=== PATIENT | female | born 1970 | race Caucasian/White ===

== ENCOUNTER 2023-06-26 14:38 | Outpatient (OUT) | payer BC, SELFPAY ==
--- NOTE | 2023-06-26 14:46 | US_ITS ---
The [address] [address] Patient Name: DUSTIN PHAM MRN: [id number] date: 1970 Sex: F Assigned Patient Location: US Current Patient Location: US Accession/Order Number: [id number] Exam Date: 06/26/2023 14:49 Report Date: 06/26/2023 15:41 At the request of: NATHANAEL JASMINE Procedure: US soft tissue head and neck US soft tissue head and neck, 06/26/2023 2:49 PM EST INDICATION: cervical lymphadenopthy R59.0 COMPARISON: There is no appropriate prior study for comparison. There are multiple heterogeneous lesions along the right aspect of neck with central vascular hilum. The largest one measures 1.3 x 1 x 1.1 cm the others measure 0.7 x 0.9 x 0.7 and 4 x 0.6 x 0.8 cm. There is adjacent soft tissue swelling. No fluid collection is noted. US/US soft tissue head and neck IMPRESSION: Multiple enlarged lymphadenopathy in the right aspect of the neck with adjacent soft tissue swelling. A CT of the neck with contrast is recommended for further evaluation. Electronically authenticated by: GABE IVORY Date: 06/26/2023 15:41
== END 2023-06-26 14:39 | disposition home or self-care (01) ==
LOC: US 14:42
PROVIDERS: PCP Family Medicine; Visit Provider Family Medicine
DX: R59.0 Localized enlarged lymph nodes (principal)
CPT/HCPCS: 76536

== ENCOUNTER 2023-08-20 12:13 | Day surgery (SDC) | payer BC, SELFPAY ==
--- NOTE | 2023-08-20 12:18 | US_ITS ---
[address] [address] Patient Name: DUSTIN PHAM MRN: [id number] date: 1970 Sex: F Assigned Patient Location: US Current Patient Location: US Accession/Order Number: [id number] Exam Date: 08/20/2023 12:20 Report Date: 08/20/2023 13:55 At the request of: DREA GUZMAN Procedure: US biopsy lymph node EXAMINATION: US biopsy lymph node on the core biopsy HISTORY: right neck mass COMPARISON: Ultrasound 06/26/2023. CT 07/03/23 TECHNIQUE: After obtaining informed consent, ultrasound-guided fine needle aspiration was performed in the usual sterile manner. FINDINGS: IMAGING: Ultrasound. BIOPSY NEEDLE: 19-gauge 6 cm Temno guide . 20-gauge 11 cm spring loaded core biopsy needle LOCATION: Right subclavicular heterogeneous mass/lymph node SPECIMEN TYPE: 3 core biopsies LOCAL ANESTHETIC: 4 cc 1% buffered lidocaine COMPLICATIONS: None. LABORATORY: Cytology and flow cytometry OTHER: Negative. PATHOLOGY: Pending. An addendum will be added when results are available. US/US biopsy lymph node IMPRESSION: 1. Uneventful ultrasound guided core biopsy of a right subclavicular mass/lymph node 2. Pathology results are pending. Electronically authenticated by: GENEVA JONES Date: 08/20/2023 13:55
--- OUTSIDE RECORDS SUMMARY | 2023-08-20 12:18 | XMS_ITS | CCD ---
Author Organization [facility] Care Team Providers Care Organ Installer Name Role Phone DR SARANYA ZULUAGA Admitting Unavailable KENROY, DR SARANYA Dickey Primary Care Unavailable KENROY, DR SARANYA Dickey Attending Unavailable SHAWN, DR JAVAD Bustillo Consulting Unavailable KENROY, DR SARANYA Dickey Consulting Unavailable MD Saranya Zuluaga Primary Care Provider MD Saranya Zuluaga Attending Provider [phone] Saranya Zuluaga Attending Unavailable Saranya Zuluaga Primary Care Unavailable Saranya Zuluaga Admitting Unavailable DREA GUZMAN Attending Unavailable Problems Problem Classification Problem Date Documented Da te Episodic/Chronic Lymphadenitis (5 sources) Cervical lymphadenopathy; Translations: [Localized enlarged lymph nodes] Onset: 07-03-2023 06-26-2023 Episodic Other screening for suspected conditions (not mental disorders or infectious disease) (4 sources) Encounter for screening mammogram for malignant neoplasm of breast; Translations: [ENC SCR MAMMO MALIG NEOPLASM BREAST] Onset: 09-06-2020 Episodic Results Test Name Value Interpretation Reference Range Facility Alanine aminotransferase [En zymatic activity/volume] in Serum or PlasmaOrdered By: Saranya Zuluaga on 07-03-2023 ALT [Catalytic activity/Vol] 10 U/L 7-52 [facility] Albumin [Mass/volume] in Ser um or Plasma by Bromocresol green (BCG) dye binding methoOrdered By: Saranya Zuluaga on 07-03-2023 Albumin BCG dye [Mass/Vol] 4.2 g/dL 3.5-5.7 [facility] Alkaline phosphatase [Enzyma tic activity/volume] in Serum or PlasmaOrdered By: Saranya Zuluaga on 07-03-2023 ALP [Catalytic activity/Vol] 80 U/L 34-104 [facility] Aspartate aminotransferase [ Enzymatic activity/volume] in Serum or PlasmaOrdered By: Saranya Zuluaga on 07-03-2023 AST [Catalytic activity/Vol] 14 U/L 13-39 [facility] Basophils Auto (Bld) [#/Vol] Ordered By: Saranya Zuluaga on 07-03-2023 Basophils (Bld) [#/Vol] 0.1 10*3/uL 0.0-0.2 [facility] Basophils/100 WBC Auto (Bld) Ordered By: Saranya Zuluaga on 07-03-2023 Basophils/100 WBC (Bld) 1.1 % . [facility] Bilirubin.total [Mass/volume ] in Serum or PlasmaOrdered By: Saranya Zuluaga on 07-03-2023 Bilirubin [Mass/Vol] 0.4 mg/dL 0.3-1.[address] [facility] CT soft tissue neck w conon 07-03-2023 CT soft tissue neck w con [facility] [address] CT Scan Report Signed Patient: Celine Pham MR#: [id number] 780 : 1970 Acct:[id number] Age/Sex: 53 / F ADM Date: 07/03/23 Loc: UL Room: Type[facility] Attending Dr: Saranya Zuluaga MD Copies to: Saranya Zuluaga MD Ordering Provider: Saranya Zuluaga MD Date of Service: 07/03/23 CT/CT soft tissue neck w con: R59.0 - Localized enlarged lymph nodes CT SOFT TISSUE NECK WITH CONTRAST CLINICAL DATA: Cervical lymphadenopathy. COMPARISON: Ultrasound 07/03/2023 Spiral images were obtained through the neck following 90 mL Isovue-300. This CT exam was performed using one or more following dose reduction techniques: Automated exposure control, adjustment of the mA and/or kV according to patient size, or use of iterative reconstruction technique. No thyroid nodularity is identified. The submandibular and parotid glands appear symmetric. There is no enlargement of the adenoids or tonsils. The epiglottis and vocal cords are within normal limits. The airway is patent throughout its course with normal appearance of the mucosal surfaces. No prevertebral soft tissue swelling is seen. There are a few small shotty upper cervical and left supraclavicular lymph nodes. In the supraclavicular region on the right, there is a heterogeneous nodular area measuring 2.2 cm in size with surrounding stranding within the subcutaneous fat. Inferior to it there are 2 additional hypoechoic nodules in close proximity measuring 8 and 9 mm in size. There is also minimal subcutaneous inflammatory change at this site. There is an additional small hypoechoic nodule along the lateral margin of the sternocleidomastoid muscle on that side. These may represent abnormal lymph nodes. There are mild degenerative change at the cervical spine, predominantly at C6-7. The imaged mastoid air cells and paranasal sinuses are clear. No dental disease is noted. Limited imaging through the upper lungs shows no contributory findings. CT/CT soft tissue neck w con IMPRESSION: NODULARITY IN THE SUPRACLAVICULAR REGION ON THE RIGHT WITH SURROUNDING INFLAMMATORY CHANGE. ADENOPATHY IS SUSPECTED HOWEVER IT IS UNCERTAIN IF THIS IS REACTIVE RELATED TO AN INFECTIOUS/INFLAMMATOR Y PROCESS OR RELATED TO A NEOPLASTIC PROCESS WITH THE LIMITED HISTORY AND NO PRIOR IMAGING OTHER THAN THE NECK. CLINICAL CORRELATION WILL BE NEEDED. THE AREA WOULD BE AMENABLE TO PERCUTANEOUS BIOPSY IF CLINICALLY WARRANTED. Impression dictated by: Isabel Cruz M.D.07/04/2023 1:23 PM Dictation Location: [place] [address] Transcribed By: CHAIM 07/04/23 1323 Dictated By: Isabel Cruz MD 07/03/232003 Signed By: 07/04/23 1323 Normal [facility] Calcium [Mass/volume] in Ser um or PlasmaOrdered By: Saranya uZluaga on 07-03-2023 Calcium [Mass/Vol] 9.0 mg/dL 8.6-10.3 [facility] Carbon dioxide, total [Moles /volume] in Serum or PlasmaOrdered By: Saranya Zuluaga on 07-03-2023 CO2 [Moles/Vol] 28.4 mmol/L 21.0-31.0 [facility] Chloride [Moles/volume] in S dwight or PlasmaOrdered By: Saranya Zuluaga on 07-03-2023 Chloride [Moles/Vol] 103 mmol/L 98-107 [facility] Complete Blood Count Auto Di ffon 07-03-2023 Basophils (Bld) [#/Vol] 0.1 10*3/uL Normal 0.0-0.2 [facility] Comment on above: Result Comment: PERF ORMED BY: [place] [address] PATHOLOGIST ASSEMBLER MECHANICAL ORDNANCE MAYDA BUSBY M.D. Performed By: #### C BC, CMP, TSH3 wRFLX #### [address] Basophils/100 WBC (Bld) 1.1 % Normal . [facility] Comment on above: Performed By: #### C BC, CMP, TSH3 wRFLX #### [address] Eosinophils (Bld) [#/Vol] 0.1 10*3/uL Normal 0.0-0.45 [facility] Comment on above: Performed By: #### C BC, CMP, TSH3 wRFLX #### [address] Eosinophils/100 WBC (Bld) 1.7 % Normal . [facility] Comment on above: Performed By: #### C BC, CMP, TSH3 wRFLX #### [address] Erythrocyte distribution width (RBC) [Ratio] 12.6 % Normal 11.9-15.3 [facility] Comment on above: Performed By: #### C BC, CMP, TSH3 wRFLX #### [address] Hematocrit (Bld) [Volume fraction] 39.3 % Normal 34.0-46.4 [facility] Comment on above: Performed By: #### C BC, CMP, TSH3 wRFLX #### [facility] [address] [place] [address] Hemoglobin (Bld) [Mass/Vol] 13.5 g/dL Normal 11.8-15.4 [facility] Comment on above: Performed By: #### C BC, CMP, TSH3 wRFLX #### [place] [address] [place] Lymphocytes (Bld) [#/Vol] 2.2 10*3/uL Normal 1.00-4.8 [facility] Comment on above: Performed By: #### C BC, CMP, TSH3 wRFLX #### [facility] [address] [place] [address] Lymphocytes/100 WBC (Bld) 26.4 % Normal . [facility] Comment on above: Performed By: #### C BC, CMP, TSH3 wRFLX #### [facility] [address] [place] [address] MCH (RBC) [Entitic mass] 29.2 pg Normal 24.7-34.3 [facility] Comment on above: Performed By: #### C BC, CMP, TSH3 wRFLX #### [address] MCV (RBC) [Entitic vol] 85.3 fL Normal 80-100 [facility] Comment on above: Performed By: #### C BC, CMP, TSH3 wRFLX #### [facility] [address] [place] [address] Mean Corpuscular HGB Conc 34.3 g/dL Normal 32.0-35.0 [facility] Comment on above: Performed By: #### C BC, CMP, TSH3 wRFLX #### [address] Monocytes (Bld) [#/Vol] 0.8 10*3/uL Normal 0.0-0.8 [facility] Comment on above: Performed By: #### C BC, CMP, TSH3 wRFLX #### [place] [address] [place] Monocytes/100 WBC (Bld) 9.3 % Normal . [facility] Comment on above: Performed By: #### C BC, CMP, TSH3 wRFLX #### [address] Neutrophils (Bld) [#/Vol] 5.1 10*3/uL Normal 1.8-7.7 [facility] Comment on above: Performed By: #### C BC, CMP, TSH3 wRFLX #### [address] Neutrophils/100 WBC (Bld) 61.5 % Normal . [facility] Comment on above: Performed By: #### C BC, CMP, TSH3 wRFLX #### [address] NRBC% 0.0 /100{WBC} Normal 0-0.5 [facility] Comment on above: Performed By: #### C BC, CMP, TSH3 wRFLX #### [address] Platelet mean volume (Bld) [Entitic vol] 8.9 fL Normal 6.3-10.7 [facility] Comment on above: Performed By: #### C BC, CMP, TSH3 wRFLX #### [address] Platelets (Bld) [#/Vol] 246 10*3/uL Normal 150-450 [facility] Comment on above: Performed By: #### C BC, CMP, TSH3 wRFLX #### [address] RBC (Bld) [#/Vol] 4.61 10*6/uL Normal 3.60-5.00 [facility] Comment on above: Performed By: #### C BC, CMP, TSH3 wRFLX #### [address] WBC (Bld) [#/Vol] 8.4 10*3/uL Normal 3.8-11.6 [facility] Comment on above: Performed By: #### C BC, CMP, TSH3 wRFLX #### [address] Comprehensive Metabolic Pane anitra 07-03-2023 Albumin [Mass/Vol] 4.2 g/dL Normal 3.5-5.7 [facility] Comment on above: Performed By: #### C BC, CMP, TSH3 wRFLX #### [facility] [address] [place] [id number] [place] Albumin/Globulin [Mass ratio] 1.9 {ratio} Normal [facility] Comment on above: Performed By: #### C BC, CMP, TSH3 wRFLX #### [facility] [address] [place] [id number] [facility] ALP [Catalytic activity/Vol] 80 U/L Normal 34-104 [facility] Comment on above: Performed By: #### C BC, CMP, TSH3 wRFLX #### [facility] [address] ALT [Catalytic activity/Vol] 10 U/L Normal 7-52 [facility] Comment on above: Performed By: #### C BC, CMP, TSH3 wRFLX #### [facility] [address] Anion gap [Moles/Vol] 10.7 mmol/L Normal 6.0-15.0 [facility] Comment on above: Performed By: #### C BC, CMP, TSH3 wRFLX #### [facility] [address] [place] [address] [place] AST [Catalytic activity/Vol] 14 U/L Normal 13-39 [facility] Comment on above: Performed By: #### C BC, CMP, TSH3 wRFLX #### [facility] [address] [place] [address] [place] Bilirubin [Mass/Vol] 0.4 mg/dL Normal 0.3-1.0 [facility] Comment on above: Performed By: #### C BC, CMP, TSH3 wRFLX #### [facility] [address] [place] [address] [place] Calcium [Mass/Vol] 9.0 mg/dL Normal 8.6-10.3 [facility] Comment on above: Performed By: #### C BC, CMP, TSH3 wRFLX #### [facility] [address] [place] [id number] [place] Chloride [Moles/Vol] 103 mmol/L Normal 98-107 [facility] Comment on above: Performed By: #### C TAMAR JOHNSON, TSH3 wRFLX #### [facility] [address] CO2 [Moles/Vol] 28.4 mmol/L Normal 21.0-31.0 [facility] Comment on above: Performed By: #### C TAMAR JOHNSON, TSH3 wRFLX #### [facility] [address] Creatinine [Mass/Vol] 0.76 mg/dL Normal 0.60-1.20 [facility] Comment on above: Performed By: #### C TAMAR JOHNSON, TSH3 wRFLX #### [address] GFR/1.73 sq M.predicted MDRD (S/P/Bld) [Vol rate/Area] mL/min/{1.73_m2} Normal [facility] Comment on above: Performed By: #### C TAMAR JOHNSON, TSH3 wRFLX #### [address] Globulin (S) [Mass/Vol] 2.2 g/dL Normal [facility] Comment on above: Performed By: #### C TAMAR JOHNSON, TSH3 wRFLX #### [address] Glucose [Mass/Vol] 94 mg/dL Normal 70-100 [facility] Comment on above: Result Comment: [place] Glucose Reference Range is dependent on time and content of last meal. Glucose of more than 200 mg/dL in a nonstressed, ambulatory subject supports the diagnosis of Diabetes Mellitus. ADA recommended reference range Performed By: #### C BCTAMAR, TSH3 wRFLX #### [address] Potassium [Moles/Vol] 4.1 mmol/L Normal 3.5-5.1 [facility] Comment on above: Performed By: #### C BCTAMAR, TSH3 wRFLX #### [address] [place] [address] [place] Protein [Mass/Vol] 6.4 g/dL Normal 6.4-8.9 [facility] Comment on above: Performed By: #### C ALEX, CMP, TSH3 wRFLX #### [facility] [address] [place] [address] [place] Sodium [Moles/Vol] 138 mmol/L Normal 136-145 [facility] Comment on above: Performed By: #### C ALEX, CMP, TSH3 wRFLX #### [facility] [address] [place] [address] [place] Urea nitrogen [Mass/Vol] 19 mg/dL Normal 7-25 [facility] Comment on above: Performed By: #### C ALEX, TAMAR, TSH3 wRFLX #### [facility] [address] [place] [address] [place] Creatinine [Mass/volume] in Serum or PlasmaOrdered By: Saranya Zuluaga on 07-03-2023 Creatinine [Mass/Vol] 0.76 mg/dL 0.60-1.20 [facility] Eosinophils Auto (Bld) [#/Vo l]Ordered By: Saranya Zuluaga on 07-03-2023 Eosinophils (Bld) [#/Vol] 0.1 10*3/uL 0.0-0.45 [facility] Eosinophils/100 WBC Auto (Bl d)Ordered By: Saranya Zuluaga on 07-03-2023 Eosinophils/100 WBC (Bld) 1.7 % . [facility] Erythrocyte distribution wid th Auto (RBC) [Ratio]Ordered By: Saranya Zuluaga on 07-03-2023 Erythrocyte distribution width (RBC) [Ratio] 12.6 % 11.9-15.3 [facility] Globulin Calc (S) [Mass/Vol] Ordered By: Saranya Zuluaga on 07-03-2023 Globulin (S) [Mass/Vol] 2.2 g/dL [facility] Glucose [Mass/volume] in Ser um or PlasmaOrdered By: Saranya Zuluaga on 07-03-2023 Glucose [Mass/Vol] 94 mg/dL 70-100 [facility] Comment on above: ADA recommended refe rence rangeRandom Glucose Reference Range is dependent on time and content of last meal. Glucose of more than 200 mg/dL in a nonstressed, ambulatory subject supports the diagnosis of Diabetes Mellitus. Hematocrit Auto (Bld) [Volum e fraction]Ordered By: Saranya Zuluaga on 07-03-2023 Hematocrit (Bld) [Volume fraction] 39.3 % 34.0-46.4 [facility] Hemoglobin [Mass/volume] in BloodOrdered By: Saranya Zuluaga on 07-03-2023 Hemoglobin (Bld) [Mass/Vol] 13.5 g/dL 11.8-15.4 [facility] Leukocytes [#/volume] correc armond for nucleated erythrocytes in Blood by Automated counOrdered By: Saranya Zuluaga on 07-03-2023 WBC corrected for nucl RBC Auto (Bld) [#/Vol] 8.4 10*3/uL 3.8-11.6 [facility] Lymphocytes Auto (Bld) [#/Vo l]Ordered By: Saranya Zuluaga on 07-03-2023 Lymphocytes (Bld) [#/Vol] 2.2 10*3/uL 1.00-4.8 [facility] Lymphocytes/100 WBC Auto (Bl d)Ordered By: Saranya Zuluaga on 07-03-2023 Lymphocytes/100 WBC (Bld) 26.4 % . [facility] MCH Auto (RBC) [Entitic mass ]Ordered By: Saranya Zuluaga on 07-03-2023 MCH (RBC) [Entitic mass] 29.2 pg 24.7-34.3 [facility] MCHC Auto (RBC) [Mass/Vol]Or dered By: Saranya Zuluaga on 07-03-2023 MCHC (RBC) [Mass/Vol] 34.3 g/dL 32.0-35.0 [facility] MCV Auto (RBC) [Entitic vol] Ordered By: Saranya Zuluaga on 07-03-2023 MCV (RBC) [Entitic vol] 85.3 fL 80-100 [facility] Monocytes Auto (Bld) [#/Vol] Ordered By: Saranya Zuluaga on 07-03-2023 Monocytes (Bld) [#/Vol] 0.8 10*3/uL 0.0-0.8 [facility] Monocytes/100 WBC Auto (Bld) Ordered By: Saranya Zuluaga on 07-03-2023 Monocytes/100 WBC (Bld) 9.3 % . [facility] Neutrophils Auto (Bld) [#/Vo l]Ordered By: Saranya Zuluaga on 07-03-2023 Neutrophils (Bld) [#/Vol] 5.1 10*3/uL 1.8-7.7 [facility] Neutrophils/100 WBC Auto (Bl d)Ordered By: Saranya Zuluaga on 07-03-2023 Neutrophils/100 WBC (Bld) 61.5 % . [facility] No Panel InformationOrdered By: Saranya Zuluaga on 07-03-2023 Estimated GFR (CKD-EPI) > 60.0 mL/Min [facility] Creatinine Clearance (Chem N/A [facility] Nucleated erythrocytes [Pres ence] in Blood by Automated countOrdered By: Saranya Zuluaga on 07-03-2023 Nucleated RBC Auto Ql (Bld) 0.0 /100{WBC} 0-0.5 [facility] Platelet mean volume Auto (B ld) [Entitic vol]Ordered By: Saranya Zuluaga on 07-03-2023 Platelet mean volume (Bld) [Entitic vol] 8.9 fL 6.3-10.7 [facility] Platelets Auto (Bld) [#/Vol] Ordered By: Saranya Zuluaga on 07-03-2023 Platelets (Bld) [#/Vol] 246 10*3/uL 150-450 [facility] Potassium [Moles/volume] in Serum or PlasmaOrdered By: Saranya Zuluaga on 07-03-2023 Potassium [Moles/Vol] 4.1 mmol/L 3.5-5.1 [facility] Protein [Mass/volume] in Ser um or PlasmaOrdered By: Saranya Zuluaga on 07-03-2023 Protein [Mass/Vol] 6.4 g/dL 6.4-8.9 [facility] RBC Auto (Bld) [#/Vol]Ordere d By: Saranya Zuluaga on 07-03-2023 RBC (Bld) [#/Vol] 4.61 10*6/uL 3.60-5.00 [facility] Serum or plasma albumin/glob ulin mass ratioOrdered By: Saranya Zuluaga on 07-03-2023 Albumin/Globulin [Mass ratio] 1.9 {ratio} [facility] Serum or plasma anion gap de terminationOrdered By: Saranya Zuluaga on 07-03-2023 Anion gap [Moles/Vol] 10.7 mmol/L 6.0-15.0 [facility] Sodium [Moles/volume] in Ser um or PlasmaOrdered By: Saranya Zuluaga on 07-03-2023 Sodium [Moles/Vol] 138 mmol/L 136-145 [facility] Thyroid Stim Hormone w/Rflxo n 07-03-2023 Thyroid Stim Hormone w/Rflx 2.33 u[iU]/mL Normal 0.45-5.33 [facility] Comment on above: Result Comment: PERF ORMED BY: [place] [address] PATHOLOGIST ASSEMBLER MECHANICAL ORDNANCE MAYDA BUSBY M.D. Performed By: #### C BC, CMP, TSH3 wRFLX #### [address] Thyrotropin [Units/volume] i n Serum or PlasmaOrdered By: Saranya Zuluaga on 07-03-2023 TSH Qn 2.33 m[IU]/L 0.45-5.33 [facility] US thyroidon 07-03-2023 US thyroid [facility] [place] [address] [place] [address] Ultrasound Report Signed Patient: Celine Pham MR#: [id number] 780 : 1970 Acct:[id number] Age/Sex: 53 / F ADM Date: 07/03/23 Loc: Room: Type[facility] Attending Dr: Saranya Zuluaga MD Ordering Provider: Saranya Zuluaga MD Date of Service: 07/03/23 US/US thyroid: R59.0 Copies to: Saranya Zuluaga MD LIMITED ULTRASOUND - right CLINICAL DATA: Inferior right neck lump. COMPARISON: CT neck 07/03/2023 Real-time ultrasound evaluation of the area of patient's lump was performed. The left side was also evaluated for comparison. There are 3 subcutaneous nodules. The largest measures 2.1 x 1.1 x 1.6 cm. There is a hypoechoic periphery and echogenic center. The soft tissues around the structure are heterogeneous. This could be an enlarged lymph node. Inferior to it, there are 2 additional hypoechoic nodular areas measuring 10 x 5 x 8 mm and 9 x 9 x 7 mm. Additional lymph nodes are possible. These findings correlate with patient's CT. There are no corresponding findings on the left. US/US thyroid IMPRESSION: SUSPECTED PATHOLOGIC RIGHT CERVICAL LYMPHADENOPATHY AT THE SITE OF PALPABLE CONCERN. CORRELATION AND FOLLOW-UP WILL BE NEEDED TO DIFFERENTIATE REACTIVE NODES FROM POSSIBLE NEOPLASTIC PROCESS. Impression dictated by: Isabel Cruz M.D.07/04/2023 1:23 PM Dictation Location: [place] [address] Tech: Nicolle Watts Transcribed By: CHAIM 07/04/23 1323 Dictated By: Isabel Cruz MD 07/03/231953 Signed By: 07/04/23 1323 Normal [facility] Urea nitrogen [Mass/volume] in Serum or PlasmaOrdered By: Saranya Zuluaga on 07-03-2023 Urea nitrogen [Mass/Vol] 19 mg/dL 7-25 [facility] WBC Auto (Bld) [#/Vol]Ordere d By: Saranya Zuluaga on 07-03-2023 WBC (Bld) [#/Vol] 8.4 10*3/uL 3.8-11.6 [facility] MG MAMM SCREEN 3D KUSUM CADon 09-06-2020 MG MAMM SCREEN 3D KUSUM CAD Patient: CELINE PHAM Exam Date: 09/06/2020 : 1970 Gender:F Ordering : DR SARANYA ZULUAGA M.D. Admission #: [id number] Family : Order #: [id number] CLICK HERE TO VIEW EXAM RADIOLOGY REPORT PROCEDURE: MAMMOGRAM SCREENING 3D BILATERAL CAD COMPARISON: None. INDICATIONS: Screening mammography Calculator Name NCI Breast Cancer Risk Assessment Tool 5 Year Breast Cancer Risk Not Reported. Lifetime Breast Cancer Risk Not Reported. Personal Breast Cancer No Personal Ovarian Cancer No Treatments None Family Cancers None LOCATION: [facility] BREAST COMPOSITION: Extremely dense, which lowers the sensitivity of mammography. FINDINGS: DIAGNOSTIC CATEGORY 2--BENIGN FINDING: RIGHT BREAST: No significant suspicious finding. Scattered benign-appearing calcifications are present. Scattered benign-appearing lymph nodes are present. LEFT BREAST: No significant suspicious finding. Scattered benign-appearing lymph nodes are present. RECOMMENDATIONS: ROUTINE MAMMOGRAM AND CLINICAL EVALUATION IN 12 MONTHS. PLEASE NOTE: A NORMAL MAMMOGRAM DOES NOT EXCLUDE THE POSSIBILITY OF BREAST CANCER. A CLINICALLY SUSPICIOUS PALPABLE LUMP SHOULD BE BIOPSIED. Dictated by: Javad Ziegler M.D. on 09/07/2020 at 07:41 Approved by: Javad Ziegler M.D. on 09/07/2020 at 07:44 Normal [facility] Vital Signs Date Time Vital Sign Value Performing Clinician Emii lity 06-26-2023 11:39-0500 Body height 162.56 cm [facility] 06-26-2023 11:39-0500 Body mass index (BMI) [Ratio] 29.5 kg/m2 [facility] 06-26-2023 11:39-0500 Body weight 78.13 kg [facility] 06-26-2023 11:39-0500 Diastolic blood pressure 77 mm[Hg] [facility] 06-26-2023 11:39-0500 Heart rate 77 /min [facility] 06-26-2023 11:39-0500 Systolic blood pressure 119 mm[Hg] [facility] Encounters Encounter Date Encounter Type Care Provider Facility Start: 08-05-2023 End: 08-05-2023 ambulatory DREA H TIMMIS Not Available Start: 07-03-2023 End: 07-03-2023 ambulatory Saranya Zuluaga Facility:[facility] Start: 07-03-2023 End: 07-03-2023 ambulatory MD Saranya Zuluaga Work Phone: [facility] Work Phone: Start: 07-03-2023 End: 07-03-2023 Patient encounter procedure MD Saranya Zuluaga Work Phone: [facility] [place] Work Phone: Start: 06-26-2023 End: 06-26-2023 ambulatory [facility] Work Phone: Start: 06-26-2023 End: 06-26-2023 Patient encounter procedure [facility] Work Phone: Start: 09-06-2020 End: 09-07-[address] SARANYA ZULUAGA Facility: Plan of Treatment Date Care Activity Detail Author Start: 07-03-2023 CT Neck W contrast IV F [facility] Start: 07-03-2023 CT of soft tissues o f neck with contrast CT soft tissue neck w con [facility] Start: 07-03-2023 US scan of thyroid US thyroid [facility] Start: 07-03-2023 US Thyroid gland [facility] Start: 06-27-2023 Patient referral [facility] Work Phone: Patient referral [facility] Work Phone: Chest [facility] Payers Date Payer Category Payer Self-pay 1970 Unknown [id number] 1970 Unknown [id number] 1960 Unknown [id number] Unknown [id number] Social History Date Type Detail Facility Tobacco smoking stat [facility] Unknown if ever smoked [facility] Work Phone: Start: 1970 Sex Assigned At Female F [facility] Evaluation note Note Date & Type Note Facility Evaluation note Diagnosis Onset Date Cervical lymphadenopathy acu te [facility] Work Phone: Summary Purpose Family History No Family History Records FoundNo Family History Records FoundNo Family History Records Found Advance Directives No Advanced Directives Records Found Advance Directive Response Recorded Date/ Time Advance Directives No June 12:03pm Chief Complaint and Reason for Visit Chief Complaint right side neck lump Reason for Visit Cervical lymphadenop athy Chief Complaint right side neck lump R59.0 Reason for Visit Cervical lymphadenop athy Additional Source Comments INFORMATION SOURCE (unrecogn ized section and content) DATE CREATED AUTHOR 09/14/2020 [facility] DATE CREATED AUTHOR AUTHOR'S ORGANIZ ATION 07/11/2023 [facility] DATE CREATED AUTHOR AUTHOR'S ORGANIZ ATION 08/06/2023 [facility] EPIC Care Teams (unrecognized sec tion and content) Team Status: Active Member Role Status Dates Saranya uZluaga MD Primary Care Provider Active Team Status: Inactive Member Role Status Dates Saranya Zuluaga MD Primary Care Provide r, Attending Provider Active Start: June 26, 2023 End: June 26, 2023 Team Status: Inactive Member Role Status Dates Saranya Zuluaga MD Primary Care Provide r, Attending Provider Active Start: July 03, 2023 End: July 03, 2023 Goals (unrecognized section and content) Goals may be documented in a n alternate sectionGoals may be documented in an alternate section FOR RECORDS PERTAINING TO PATIENTS WHO ARE OR HAVE BEEN ENROLLED IN A CHEMICAL DEPENDENCY/SUBSTANCEABUSE PROGRAM, SOME INFORMATION MAY BE OMITTED. This clinical summary was aggregated from multiple sources. Caution should be exercised in using it in the provision of clinical care. This summary normalizes information from multiple sources, and as a consequence, information in this document may materially change the coding, format and clinical context of patient data. In addition, data may be omitted in some cases. CLINICAL DECISIONS SHOULD BE BASED ON THE PRIMARY CLINICAL RECORDS. [facility]. provides no warranty or guarantee of the accuracy or completeness of information in this document.
[2023-08-20 12:30] VITALS: BP 135/86; PULSE 66; O2SAT 97
[2023-08-20] MEDS: LIDOCAINE HCL 10 ML, SODIUM BICARBONATE 1 MEQ INJ (13:15)
--- NOTE | 2023-08-20 14:25 | SUR.PREOP ---
08/14/23 Instructed pt on procedure, date, time, and prep.
== END 2023-08-20 13:40 | disposition home or self-care (01) ==
LOC: US 12:14
PROVIDERS: Radiology Diagnostic Radiology; PCP Family Medicine; Visit Provider Otolaryngology
DX: R22.1 Localized swelling, mass and lump, neck (principal)
CPT/HCPCS: 38505; 88305; 88341; 88342

== ENCOUNTER 2024-11-10 16:37 | Outpatient (OUT) | payer BC, SELFPAY ==
--- NOTE | 2024-11-10 | MM_ITS ---
Patient Name: DUSTIN PHAM MR#: [id number] : 1970 Exam Date: 11/10/2024 Ordering Doctor: DR NATHANAEL JASMINE M.D. RADIOLOGY REPORT PROCEDURE: MM TOMOSYNTHESIS SCREENING BI COMPARISON: MG MAMM SCREEN 3D [facility] CAD, 09/06/2020. INDICATIONS: Encounter for screening mammogram for malignant neoplasm Calculator Name NCI Breast Cancer Risk Assessment Tool 5 Year Breast Cancer Risk Not Reported. Lifetime Breast Cancer Risk Not Reported. Personal Breast Cancer No Personal Ovarian Cancer No Treatments None Family Cancers None LOCATION: [facility] BREAST COMPOSITION: The breasts are heterogeneously dense, which may obscure small masses. FINDINGS: DIAGNOSTIC CATEGORY 1--NEGATIVE. RIGHT BREAST: No significant suspicious finding. LEFT BREAST: No significant suspicious finding. RECOMMENDATIONS: ROUTINE MAMMOGRAM AND CLINICAL EVALUATION IN 12 MONTHS. PLEASE NOTE: A NORMAL MAMMOGRAM DOES NOT EXCLUDE THE POSSIBILITY OF BREAST CANCER. A CLINICALLY SUSPICIOUS PALPABLE LUMP SHOULD BE BIOPSIED. Dictated by: Bunny Espinal MD on 11/11/2024 at 12:48 Approved by: Bunny Espinal MD on 11/11/2024 at 13:03
== END 2024-11-10 16:38 | disposition home or self-care (01) ==
LOC: MAMMO 16:37
PROVIDERS: PCP Family Medicine; Visit Provider Family Medicine
DX: Z12.31 Encounter for screening mammogram for malignant neoplasm of breast (principal)
CPT/HCPCS: 77063; 77067